=== PATIENT | female | born 1985 | race Caucasian/White ===

== ENCOUNTER 2019-02-02 19:28 | Emergency (ER) | payer MEDICARE, SELFPAY ==
[2019-02-02 19:30] VITALS: BP 160/113; PULSE 128; RESP 18; TEMP 36.8; O2SAT 99; BMI 27.4
--- NOTE | 2019-02-02 20:02 | ED.RN ---
pt arrives to ed aggitated and noncooperative. pt refused to get into a gown and asked for a female dr and rn. pt was informed that I would try to facilitate a female rn, but we only had male dr on staff. pt was on the phone with her control inspector. explanation for involuntary hold was attempted, but pt was unable remain calm and allow me to explain. she continued to want to argue. Female rn was located and agreed to take over care. pt behavior and previous interactions were relayed to er discharge door operator and dr. casey, rn is now caring for patient as primary rn. ilda patel rn [id number]
--- NOTE | 2019-02-02 20:18 | ED.RN ---
SHARON FROM CRISIS IN THE DEPARTMENT. NOTIFIED HER THAT THIS PT WILL NEED TO BE EVALUATED.
--- NOTE | 2019-02-02 20:19 | ED.RN ---
SHARON FROM CRISIS AT BEDSIDE.
[2019-02-02 20:29] VITALS: RESP 16
--- NOTE | 2019-02-02 20:32 | ED.RN ---
SITTER IN THE ROOM PER DR RUSS REQUEST DUE TO FLIGHT RISK
[2019-02-02] MEDS: LORazepam 1 MG Tablet PO (20:46)
[2019-02-02] MEDS: DiphenhydrAMINE 25 MG Capsule PO (20:46)
[2019-02-02 20:48] LABS: Absolute Lymphocyte Count 1.59 X10^3/ul (0.83-4.51); Absolute Neutrophil Count 7.8 X10^3/uL (2.0-7.7); Basophil# 0.01 X10^3/uL; Basophil% 0.1 % (0-1); Eosinophil# 0.06 X10^3/uL; Eosinophils% 0.6 % (0-5); Hematocrit 41.3 % (37-47); Hemoglobin 14.2 g/dl (12.0-15.0); Lymphocyte # 1.59 X10^3/ul (4.0); Lymphocyte % 15.5 % (19-41); Mean Corp Hgb Conc 34.4 g/gl (32-36); Mean Corpuscular Hgb 30.5 pg (27.0-32.0); Mean Corpuscular Volume 88.6 fL (81-99); Mean Platelet Vol. 10.2 fl (6.2-12.0); Monocyte# 0.75 X10^3/uL; Monocyte% 7.3 % (0-10); Neutrophil % 76.3 % (47-70); Platelet Count 233 K/mm3 (150-450); RBC Distribution Width CV 12.4 % (11.6-14.6); RBC Distribution Width SD 39.5 fl (35.1-43.9); Red Blood Count 4.66 M/mm3 (4.2-5.4); White Blood Count 10.2 K/mm3 (4.4-11.0)
[2019-02-02 20:50] LABS: POSITIVE COUNT NO; POSITIVE DIFFERENTIAL NO; POSITIVE MORPHOLOGY NO
--- NOTE | 2019-02-02 20:55 | CM.ED ---
SOCIAL WORK NOTE CARRY ALL DRIVER REQUESTING TO SPEAK WITH THIS WORKER. PER CARRY ALL DRIVER, SHARON, PATIENT NOT APPROPRIATE FOR INPATIENT PSYCH HOSPITALIZATION. PATIENT DENIES ANY SUICIDAL OR HOMICIDAL IDEATIONS. PER SHARON, PATIENT ABLE TO D/C HOME WITH HER FIANCE. DISCUSSED WITH DR. RUSS. IVANA SHARMA, TENNIS DIRECTOR, TOP STITCHER.
[2019-02-02 21:03] LABS: AST(SGOT) 10 U/L (15-37); Alanine Aminotransfer ALT/SGPT 29 U/L (13-56); Albumin, Serum 3.9 g/dL (3.2-5.0); Alkaline Phosphatase 108 U/L (45-117); Anion Gap 7 (5-15); BUN 9 mg/dL (7-18); BUN/Creat Ratio 12.5 RATIO (10-20); Calcium,Total 8.6 mg/dL (8.5-10.1); Chloride 104 mmol/L (98-107); Creatinine, Serum 0.72 mg/dL (0.55-1.02); EST Glomerular Filtration Rate 98 mL/min (>60); Est Glom Filt Rate - Afr Amer 119 mL/min (>60); Estimated Creatinine Clearance 86.25 ml/min; Globulin 4.1 g/dL (2.2-4.2); Glucose 110 mg/dL (74-106); Potassium 3.8 mmol/L (3.5-5.1); Sodium Level 138 mmol/L (136-145)
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
--- NOTE | 2019-02-02 22:39 | ED.DEP ---
ED Disposition - Plan for ED Patient: Instructions: ED Contract, No Harm Additional Instructions: followup with your psychiatrist
[2019-02-02 22:42] LABS: Amphetamine Urine VISTA NEGATIVE (<1000 ng/mL); Barbiturate Urine VISTA NEGATIVE (< 200 ng/mL); Benzodiazepine Urine VISTA NEGATIVE (< 200 ng/mL); Cocaine Urine VISTA NEGATIVE (< 300 ng/mL); Ecstacy Urine VISTA NEGATIVE (< 500 ng/mL); Methadone Urine VISTA NEGATIVE (< 300 ng/mL); PCP Urine VISTA NEGATIVE (< 25 ng/mL); THC Urine VISTA NEGATIVE (< 50 ng/mL); Vista UDS pH Range 5
[2019-02-02 22:44] VITALS: BP 119/92; PULSE 87; RESP 16; O2SAT 99
[2019-02-02 22:47] VITALS: BP 119/92; PULSE 92; RESP 16; O2SAT 100
[2019-02-02 22:50] LABS: Internal QC Validated? YES +Cl - CLEAR BKGD
[2019-02-02 22:51] LABS: Pregnancy, Serum, hCG Quali. NEGATIVE Negative
--- NOTE | 2019-02-02 22:52 | ED.RN ---
pt refused to sign no harm contract stating that stupid. i don't believe in no harm contracts. dr garcia made aware. significant other was instructed to call 911 if patient became a threat to herself or others. he stated understanding. ilda patel rn [id number]
== END 2019-02-02 22:49 | disposition home or self-care (01) ==
PROVIDERS: Emergency Provider Emergency Medicine
DX: F31.9 Bipolar disorder, unspecified (principal); F41.9 Anxiety disorder, unspecified; F32.9 Major depressive disorder, single episode, unspecified; Z79.899 Other long term (current) drug therapy
CPT/HCPCS: 36415; 80053; 80307; 80320; 84703; 85025; 99283; G0480

== ENCOUNTER 2021-12-02 14:48 | Outpatient (CLI) | payer MEDICARE, SELFPAY ==
[2021-12-02 16:02] LABS: Absolute Lymphocyte Count 1.79 X10^3/uL (0.83-4.51); Absolute Neutrophil Count 8.5 X10^3/uL (2.0-7.7); Basophil# 0.03 X10^3/uL; Basophil% 0.3 % (0-1); Eosinophil# 0.08 X10^3/uL; Eosinophils% 0.7 % (0-5); Hematocrit 40.3 % (37-47); Hemoglobin 13.4 g/dL (12.0-15.0); Lymphocyte # 1.79 X10^3/ul (0.83-4.51); Mean Corp Hgb Conc 33.3 g/dL (32-36); Mean Corpuscular Hgb 29.6 pg (27.0-32.0); Mean Platelet Vol. 10.1 fl (6.2-12.0); Monocyte# 0.72 X10^3/uL; Monocyte% 6.4 % (0-10); NRBC Flagged by Analyzer 0 % (0-5); Neutrophil # 8.51 X10^3/uL (2.7-7.7); Neutrophil % 76.1 % (47-70); Platelet Count 333 K/mm3 (150-450); RBC Distribution Width CV 13.3 % (11.6-14.6); RBC Distribution Width SD 43.1 fl (35.1-43.9); Red Blood Count 4.53 M/mm3 (4.2-5.4); White Blood Count 11.2 K/mm3 (4.4-11.0)
[2021-12-02 16:48] LABS: ALB/GLOB Ratio 0.8 RATIO (0.9-2.4); AST(SGOT) 17 U/L (15-37); Alanine Aminotransfer ALT/SGPT 39 U/L (13-56); Albumin, Serum 3.6 g/dL (3.2-5.0); Alkaline Phosphatase 103 U/L (45-117); Anion Gap 6 (5-15); BUN 10 mg/dL (7-18); BUN/Creat Ratio 13.8 RATIO (10-20); Calcium,Total 8.9 mg/dL (8.5-10.1); Chloride 107 mmol/L (98-107); Creatinine, Serum 0.72 mg/dL (0.55-1.02); EST Glomerular Filtration Rate 96 mL/min (>60); Est Glom Filt Rate - Afr Amer 116 mL/min (>60); Globulin 4.8 g/dL (2.2-4.2); Glucose 96 mg/dL (74-106); Potassium 3.6 mmol/L (3.5-5.1); Protein, Total 8.4 g/dL (6.4-8.2); Sodium Level 137 mmol/L (136-145); T4 Free Direct 1.07 ng/dL (0.76-1.46); Thyroid Stim Hormone (TSH) 1.26 uIU/mL (0.358-3.74)
[2021-12-04 17:07] LABS: Endomysial Antibody IgA Negative (Negative); Immunoglobulin A 381 mg/dL (87-352)
[2021-12-04 17:56] LABS: Deamidated Gliadin IgA 7 units (0-19); Deamidated Gliadin IgG 4 units (0-19); Thyroid Peroxidase AB 12 IU/mL (0-34); t-Transglutaminase IgA <2 U/mL (0-3)
== END 2021-12-02 23:59 | disposition home or self-care (01) ==
LOC: LAB 14:52
PROVIDERS: PCP Nurse Practitioner Adult Health; Referring Provider Nurse Practitioner Adult Health; Visit Provider Nurse Practitioner Adult Health
DX: R19.7 Diarrhea, unspecified (principal); R63.5 Abnormal weight gain
CPT/HCPCS: 36415; 80053; 82784; 83516; 84439; 84443; 85025; 86255; 86376

== ENCOUNTER 2022-01-04 18:06 | Emergency (ER) | payer MEDICARE, SELFPAY ==
[2022-01-04 18:08] VITALS: BP 148/94; PULSE 91; RESP 17; TEMP 35.8; O2SAT 100; BMI 32.1
--- NOTE | 2022-01-04 18:30 | EX.ED.VIS.PS ---
HPI HPI - Psych History of Present Illness Chief Complaint: Mental Health Informant: patient Narrative Narrative: Patient presents by private vehicle reporting increasing stress with insomnia for the past couple weeks. History of bipolar disorder. She is followed by telehealth psychiatry down in [place]. She said diagnoses bipolar since 2014. Has been on multiple medications, most recently was on Zyprexa 7.5 mg. However reports was gaining over 40 pounds therefore stopped this 2 weeks ago. She also stopped her to hydroxyzine due to not working for her anxiety. She denies any suicidal homicidal ideations. She has been trying to get back in with her psychiatrist to try to restart a different medication. She states had appointment 4 PM today however was not given the length the log on and had to try to get appointment for this coming Thursday. She has tried melatonin in the past. She states 4 years ago was on trazodone 50 mg which helped her sleep. She denies any alcohol use denies any recreational drug use. States stress with her exsignificant other which was a split after 8 years, they sold her house a month ago she just recently moved in with her mother with her children out from [place]. She states she was incarcerated for 16 months, she was out over a year ago. Prior similar symptoms: Yes PFSH PFSH Home Medications escitalopram oxalate 20 mg PO DAILY 02/02/19 [History Last Taken Unknown] lorazepam 1 mg PO PRN PRN 02/02/19 [History Last Taken Unknown] paliperidone palmitate [Invega Sustenna] 117 unit IM QMONTH 02/02/19 [History Last Taken Unknown] trazodone 50 mg PO QHS PRN #7 tab 01/04/22 [Rx Last Taken Unknown] Allergy/AdvReac Type Severity Reaction Status Date / Time citalopram hydrobromide Allergy Hives Verified 01/04/22 18:08 [From Celexa] hydrocodone bitartrate Allergy Swelling Verified 01/04/22 18:08 [From Vicodin] lamotrigine [From Lamictal] Allergy Itching Verified 01/04/22 18:08 nitrofurantoin Allergy Hives Verified 01/04/22 18:08 [From Macrobid] nitrofurantoin Allergy Hives Verified 01/04/22 18:08 macrocrystalline [From Macrobid] Penicillins Allergy Swelling Verified 01/04/22 18:08 ziprasidone [From Geodon] AdvReac Other Verified 01/04/22 18:08 Social History Smoking Status: Never smoker ROS ROS ED Constitutional Constitutional ED: Denies chills, fever(s) or sweats Eyes Eyes: Denies change in vision ENT ENT ED: Denies dysphagia or sore throat Cardiovascular Cardiovascular: Denies chest pain, leg edema, palpitations or racing heartbeat Respiratory/Chest Respiratory/Chest: Denies cough, dyspnea or dyspnea on exertion Gastrointestinal Gastrointestinal: Denies abdominal pain, diarrhea, nausea or vomiting Genitourinary Genitourinary ED: Denies dysuria, hematuria or urinary frequency Musculoskeletal Musculoskeletal: Denies back pain, extremity pain or neck pain Integumentary Denies rash or wounds Neurologic Neurologic: Denies headache(s), paresthesias or weakness Psychiatric Psychiatric: Reports anxiety and other Details: Insomnia ; Denies depression, suicidal ideation or suicidal thoughts EXAM Physical Exam Const Vital Signs: 01/04/22 18:08 Temperature 96.5 F L Temperature Source Temporal Pulse Rate 91 Respiratory Rate 17 Blood Pressure 148/94 H Blood Pressure Mean 112 Pulse Ox 100 Oxygen Delivery Method Room Air Positive well nourished and well developed General Appearance ED: well developed and NAD HEENT Reports moist mucous membranes normocephalic and atraumatic Eyes PERRL, EOMs intact bilaterally and conjunctivae normal General Eye ED: Yes normal appearance of both eyes Neck no lymphadenopathy and supple General: Negative for tenderness Chest Wall Chest: Negative for tenderness Resp normal respiratory effort and normal air movement Effort and Inspection: symmetric chest movement; Negative for respiratory distress Cardio regular rate, regular rhythm and no murmurs Peripheral Pulses: pulses 2+ throughout GI normal to inspection, nondistended, normoactive bowel sounds and non-tender Palpation: Negative for guarding or rebound tenderness present Back/Spine no CVA tenderness and no thoracic nor lumbar tenderness Extremity normal to inspection General Extremety ED: Negative for edema or tenderness General Extremity: Negative for edema Neuro oriented x3 and no sensory deficits noted Sensorium / Orientation: awake and alert Psych Psych Narrative: Denies any suicidal homicidal ideations. Appearance: grossly normal, appropriate and well kempt Attitude: calm Activity / Motor Behavior: appropriate eye contact Speech: normal speech Skin no rashes or lesions noted and no wounds MDM MDM MDM Narrative Medical decision making narrative: Patient vital stable cooperative discussing her increasing stress. She did not want to restart her Zyprexa due to weight gain. Primary complaint today is insomnia due to stress. She is tolerated trazodone in the past. She denies suicidal homicidal ideations. Discussed with patient we will write a 7-day prescription for trazodone at night to use to help her sleep she will discuss with her psychiatrist on Thursday to restart a different medication due to concerning side effects of weight gain. Patient understands and agrees with plan. All questions were answered. Discharge Plan Triage Chief Complaint: Mental Health ED Provider: Jesu Molina Dx/Rx/DC Orders Clinical Impression: Insomnia, History of bipolar disorder Instructions: ED Insomnia Prescriptions: New trazodone 50 mg tablet 50 mg PO QHS PRN (Reason: insomnia) Qty: 7 RF: 0 No Action lorazepam 1 tablet 1 mg PO PRN PRN (Reason: Anxiety) RF: 0 escitalopram oxalate 20 MG tablet 20 mg PO DAILY RF: 0 paliperidone palmitate [Invega Sustenna] 117 syringe 117 unit IM QMONTH RF: 0 Primary Care Provider: Liliana Lamas Referrals: Liliana Lamas [Primary Care Provider] - Activity Restrictions/Additional Instructions: Keep your appointment on Thursday to discuss your medications with your psychiatrist. Trazodone sent to your pharmacy to take at night to help you sleep. Disposition Disposition: Home, Self Care
== END 2022-01-04 18:36 | disposition home or self-care (01) ==
PROVIDERS: Emergency Provider Emergency Medicine; Visit Provider Emergency Medicine
DX: G47.00 Insomnia, unspecified (principal); F31.9 Bipolar disorder, unspecified; F41.9 Anxiety disorder, unspecified; Z79.899 Other long term (current) drug therapy
CPT/HCPCS: 99281

== ENCOUNTER 2022-03-05 18:44 | Emergency (ER) | payer MEDICARE, MEDICAID, SELFPAY ==
[2022-03-05 18:48] VITALS: BP 156/107; PULSE 118; RESP 17; TEMP 36.8; O2SAT 98; BMI 30.3
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
[2022-03-05 20:13] VITALS: PULSE 102; RESP 15; O2SAT 98
== END 2022-03-05 20:14 | disposition home or self-care (01) ==
PROVIDERS: Emergency Provider Emergency Medicine; Visit Provider Emergency Medicine
DX: F43.0 Acute stress reaction (principal); F31.9 Bipolar disorder, unspecified; Z63.79 Other stressful life events affecting family and household; Z79.899 Other long term (current) drug therapy
CPT/HCPCS: 99282

== ENCOUNTER 2022-04-12 19:34 | Emergency (ER) | payer MEDICARE, MEDICAID, SELFPAY ==
[2022-04-12 19:35] VITALS: BP 135/108; PULSE 127; RESP 16; TEMP 36.6; O2SAT 100; BMI 29.2
--- NOTE | 2022-04-12 19:45 | CM.ED ---
Addendum entered by Lenore Mendez 04/12/22 20:00: MD Adrian updated this telegraphic typewriter installer regarding patient. agreed to crisis referral. Lenore SCHWARTZ Addendum entered by Lenore Mendez 04/12/22 19:48: DONALD received call from Prema with Crisis. DONALD updated Prema that Crisis may be called to assess pt. Original Note: Social Work Note DONALD updated that pt presents to [facility] with Agitation and Mental Health. DONALD placed a call to [facility] asked to speak to Crisis. DONALD updated that Bárbara is wharf worker and message will be relayed. Barbi Casillas FUR CLEANER, THICKENER OPERATOR
--- NOTE | 2022-04-12 20:01 | EX.ED.VIS.PS ---
HPI HPI - Psych History of Present Illness Chief Complaint: Mental Health Informant: patient Onset/Context/Timing Onset: Yesterday Context: Gradual Onset Timing: Continuous Worsened by: Situational factors Relieved by: Nothing Associated Symptoms Associated Symptoms - Psych: Positive for Agitated; Negative for Suicidal Thoughts, Paranoia, Visual Hallucinations or Auditory Hallucinations Narrative Narrative: Patient presents with increased agitation that began yesterday. Patient states that she is moving 20 minutes away from where she lives now. Patient states that she will only be able to see her children on the weekends because of this. Patient states this made her agitated. Patient states she was agitated throughout the day today. Patient denies any suicidal or homicidal ideations. Patient denies any visual or auditory hallucinations. Patient also states her medication was changed recently. Patient states she takes Geodon twice daily. Patient states her evening dose was increased recently. [facility] Medical History Bipolar 1 disorder Home Medications albuterol sulfate 90 mcg/actuation aerosol inhaler 2 puff inhalation Q4H PRN PRN sob 03/05/22 [History Last Taken Unknown] loratadine 10 mg tablet (Claritin) 10 mg PO DAILY 03/05/22 [History Last Taken Unknown] lorazepam 0.5 mg tablet (Ativan) 0.5 mg PO TID PRN anxiety #20 tabs 03/05/22 [Rx Last Taken Unknown] trazodone 50 mg tablet 100 mg PO QHS PRN insomnia 03/05/22 [History Last Taken Unknown] ziprasidone HCl 20 mg capsule (Geodon) 20 mg PO BID 03/05/22 [History Last Taken Unknown] Allergy/AdvReac Type Severity Reaction Status Date / Time citalopram hydrobromide Allergy Hives Verified 04/12/22 19:37 [From Celexa] hydrocodone bitartrate Allergy Swelling Verified 04/12/22 19:37 [From Vicodin] lamotrigine [From Lamictal] Allergy Itching Verified 04/12/22 19:37 nitrofurantoin Allergy Hives Verified 04/12/22 19:37 [From Macrobid] nitrofurantoin Allergy Hives Verified 04/12/22 19:37 macrocrystalline [From Macrobid] Penicillins Allergy Swelling Verified 04/12/22 19:37 Surgical History History of tubal ligation Social History household members: family and children Smoking Status: Never smoker ROS ROS ED Constitutional Constitutional ED: Denies chills or fever(s) Eyes Eyes: Denies blurry vision or change in vision ENT ENT ED: Denies rhinorrhea or sore throat Cardiovascular Cardiovascular: Denies chest pain or palpitations Respiratory/Chest Respiratory/Chest: Reports cough; Denies dyspnea Gastrointestinal Gastrointestinal: Reports nausea; Denies vomiting Genitourinary Genitourinary ED: Denies dysuria or hematuria Musculoskeletal Musculoskeletal: Denies back pain or neck pain Integumentary Denies abscess or rash Neurologic Neurologic: Denies headache(s) or weakness Psychiatric Psychiatric: Denies suicidal ideation or suicidal thoughts Allergic/Immunologic Allergic/Immunologic ED: Denies mouth swelling or urticaria EXAM Physical Exam Const Vital Signs: 04/12/22 19:35 04/12/22 21:14 Temperature 98 F Temperature Source Temporal Pulse Rate 127 H 88 Respiratory Rate 16 18 Blood Pressure 135/108 H Blood Pressure Mean 117 Pulse Ox 100 100 Oxygen Delivery Method Room Air Room Air Positive well nourished and well developed General Appearance ED: well developed and irritable HEENT normocephalic and atraumatic Neck supple and no JVD Resp normal respiratory effort and clear to auscultation bilaterally Cardio no murmurs Rate: regular rate Rhythm: regular rhythm GI non-tender and non-distended Auscultation: normoactive bowel sounds Palpation: soft Extremity normal to inspection General Extremety ED: Negative for edema or tenderness General Extremity: Negative for edema Neuro oriented x3, CN's II-XII intact bilaterally and no sensory deficits noted Sensorium / Orientation: alert Motor Exam: strength 5/5 throughout Psych mental status grossly normal Activity / Motor Behavior: appropriate eye contact Speech: normal speech Mood & Affect: irritable Thought Content: No suicidality and No homicidality Skin Rashes: no rashes MDM MDM MDM Narrative Medical decision making narrative: Patient does not want any lab work drawn. Case was discussed with crisis. They will be in to evaluate the patient. Patient does not want to talk to crisis. Patient was given a dose of Ativan here. Patient feels better. Patient is not suicidal or homicidal. Patient has an appointment with her psychiatrist tomorrow. Patient was advised to follow-up with that appointment. Patient is safe to be discharged. Patient understands and is agreeable with the plan. All questions were answered. Discharge Plan Triage Chief Complaint: Mental Health ED Provider: Yobani Alcocer Dx/Rx/DC Orders Clinical Impression: Agitation, Bipolar disorder Instructions: ED Bipolar Disorder Prescriptions: No Action ziprasidone HCl [Geodon] 20 mg capsule 20 mg PO BID Label Comments: take 1 capsule by mouth twice a day trazodone 50 mg tablet 100 mg PO QHS PRN (Reason: insomnia) albuterol sulfate 90 mcg/actuation HFA aerosol inhaler 2 puff INHALATION Q4H PRN PRN (Reason: sob) loratadine [Claritin] 10 mg Tablet 10 mg PO DAILY lorazepam [Ativan] 0.5 mg tablet 0.5 mg PO TID PRN (Reason: anxiety) Qty: 20 0RF Primary Care Provider: Liliana Lamas Referrals: Liliana Lamas [Primary Care Provider] - 3-5 Days Disposition Disposition: Home, Self Care
--- NOTE | 2022-04-12 20:07 | NURSING ---
CALLED [facility] AT 2006. WAITING CALL BACK.
[2022-04-12] MEDS: LORazepam 1 MG Tablet PO (21:09)
[2022-04-12 21:14] VITALS: PULSE 88; RESP 18; O2SAT 100
--- NOTE | 2022-04-12 21:14 | NURSING ---
pt refused to talk with bag worker. doctor update.
[2022-04-12 22:02] VITALS: PULSE 72; RESP 18; O2SAT 100
== END 2022-04-12 22:03 | disposition home or self-care (01) ==
PROVIDERS: Emergency Provider Emergency Medicine; Visit Provider Emergency Medicine
DX: F31.9 Bipolar disorder, unspecified (principal); Z79.899 Other long term (current) drug therapy
CPT/HCPCS: 99282

== ENCOUNTER 2022-06-25 19:58 | Emergency (ER) | payer MEDICARE, MEDICAID, SELFPAY ==
[2022-06-25 19:58] VITALS: BP 138/88; PULSE 84; RESP 18; TEMP 36.3; O2SAT 100; BMI 29.2
--- NOTE | 2022-06-25 22:37 | EX.ED.DYSGE1 ---
HPI History of Present Illness Chief Complaint: Mental Health Narrative Narrative: Patient is a 36-year-old female with past medical history of bipolar disorder and depression. She states she is on Geodon twice a day for her bipolar and also has been started on Wellbutrin for the past week and a half. She states that she is not homicidal or suicidal but feels like her depression is increasing and not responding to her medication. She states that she has been to crisis center in [facility] in the past for voluntary admission and feels like she may need to go that route once again and therefore comes to the hospital for evaluation. [facility] Medical History Bipolar 1 disorder Depression Home Medications albuterol sulfate 90 mcg/actuation aerosol inhaler 2 puff inhalation Q4H PRN PRN sob 03/05/22 [History Last Taken Unknown] loratadine 10 mg tablet (Claritin) 10 mg PO DAILY 03/05/22 [History Last Taken Unknown] lorazepam 0.5 mg tablet (Ativan) 0.5 mg PO TID PRN anxiety #20 tabs 03/05/22 [Rx Last Taken Unknown] trazodone 50 mg tablet 100 mg PO QHS PRN insomnia 03/05/22 [History Last Taken Unknown] ziprasidone HCl 20 mg capsule (Geodon) 20 mg PO BID 03/05/22 [History Last Taken Unknown] Allergy/AdvReac Type Severity Reaction Status Date / Time citalopram hydrobromide Allergy Hives Verified 06/25/22 20:01 [From Celexa] hydrocodone bitartrate Allergy Swelling Verified 06/25/22 20:01 [From Vicodin] lamotrigine [From Lamictal] Allergy Itching Verified 06/25/22 20:01 nitrofurantoin Allergy Hives Verified 06/25/22 20:01 [From Macrobid] nitrofurantoin Allergy Hives Verified 06/25/22 20:01 macrocrystalline [From Macrobid] Penicillins Allergy Swelling Verified 06/25/22 20:01 Surgical History History of tubal ligation Social History household members: family and children Smoking Status: Never smoker ROS ROS ED Constitutional Constitutional ED: Denies chills or fever(s) ENT ENT ED: Denies sore throat Cardiovascular Cardiovascular: Denies chest pain Respiratory/Chest Respiratory/Chest: Denies cough or dyspnea Gastrointestinal Gastrointestinal: Denies abdominal pain, diarrhea, nausea or vomiting Genitourinary Genitourinary ED: Denies dysuria Musculoskeletal Musculoskeletal: Denies myalgias Integumentary Denies rash Neurologic Neurologic: Denies headache(s) Psychiatric Psychiatric: Reports depression; Denies suicidal ideation or suicidal thoughts Hematologic/Lymphatic Hematologic/Lymphatic: Denies easy bleeding or easy bruising EXAM Physical Exam Const Vital Signs: 06/25/22 19:58 Temperature 97.4 F L Temperature Source Temporal Pulse Rate 84 Respiratory Rate 18 Blood Pressure 138/88 H Blood Pressure Mean 104 Pulse Ox 100 Oxygen Delivery Method Room Air Positive well nourished and well developed General Appearance ED: well developed Eyes PERRL and EOMs intact bilaterally Neck supple Resp normal respiratory effort and clear to auscultation bilaterally Cardio regular rate and regular rhythm Extremity normal to inspection Neuro oriented x3, CN's II-XII intact bilaterally and no sensory deficits noted Sensorium / Orientation: alert Motor Exam: strength 5/5 throughout Psych Psych Narrative: Patient has a depressed/flat affect without homicidal or suicidal ideation Skin no rashes or lesions noted MDM MDM MDM Narrative Medical decision making narrative: Patient presented to the ER with complaint of depression was not improving with time and her normal medications. Despite this she denied any homicidal or suicidal ideations. I instructed the patient that there is no quick fix for depression and she needs to continue her meds as directed by her counselor/psychiatrist. However as she is feeling her depression is worsening I did offer evaluation by our crisis center to see if she would require placement at a facility for further treatment. The patient states that she will not go to any other facility other than the crisis center of [facility]. She states however it is 45 minutes away and she does not wish to drive up there to see if beds are available and at this time she is refusing any type of testing as she states it is not needed for placement at their center. I did contact the crisis center of [facility] but they told me they cannot give any information regarding bed status. They recommend that if patient feels she needs admitted to their facility that she drive up there and go through their intake process and see if a bed is available. The patient is not homicidal or suicidal she is not meet criteria for a pink slip/involuntary hold. Therefore there is no need for further work-up at this time as she does not want further evaluated by our crisis center/intervention and is otherwise safe for discharge. Discharge Plan Triage Chief Complaint: Mental Health ED Provider: Harry Valiente Dx/Rx/DC Orders Clinical Impression: Bipolar disorder with depression Instructions: ED Depression, ED Bipolar Disorder Prescriptions: No Action ziprasidone HCl [Geodon] 20 mg capsule 20 mg PO BID Label Comments: take 1 capsule by mouth twice a day trazodone 50 mg tablet 100 mg PO QHS PRN (Reason: insomnia) albuterol sulfate 90 mcg/actuation HFA aerosol inhaler 2 puff INHALATION Q4H PRN PRN (Reason: sob) loratadine [Claritin] 10 mg Tablet 10 mg PO DAILY lorazepam [Ativan] 0.5 mg tablet 0.5 mg PO TID PRN (Reason: anxiety) Qty: 20 0RF Primary Care Provider: Liliana Lamas Referrals: Liliana Lamas [Primary Care Provider] - Disposition Disposition: Home, Self Care Discharge Date/Time: 06/25/22 22:42
--- NOTE | 2022-06-25 22:42 | ED.RN ---
pt. eloped before d/c
== END 2022-06-25 22:42 | disposition home or self-care (01) ==
LOC: ED 22:39
PROVIDERS: Emergency Provider Emergency Medicine; Visit Provider Emergency Medicine
DX: F31.9 Bipolar disorder, unspecified (principal); Z79.899 Other long term (current) drug therapy
CPT/HCPCS: 99282

== ENCOUNTER 2022-07-27 14:37 | Emergency (ER) | payer MEDICARE, MEDICAID, SELFPAY ==
[2022-07-27 14:38] VITALS: BP 155/106; PULSE 98; RESP 16; TEMP 36.4; O2SAT 100; BMI 29.2
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
== END 2022-07-27 15:37 | disposition home or self-care (01) ==
PROVIDERS: Emergency Provider Emergency Medicine; Visit Provider Emergency Medicine
DX: F31.9 Bipolar disorder, unspecified (principal); F43.9 Reaction to severe stress, unspecified; F41.9 Anxiety disorder, unspecified; Z63.8 Other specified problems related to primary support group
CPT/HCPCS: 99282

== ENCOUNTER 2022-09-10 15:07 | Outpatient (CLI) | payer MEDICARE, MEDICAID, SELFPAY ==
--- NOTE | 2022-09-10 15:25 | RAD_ITS ---
EXAM: XR CHEST, 2 VIEWS CLINICAL INDICATION: CHRONIC COUGH TECHNIQUE: Frontal and lateral views of the chest. This report was created using [employer] report generation technology. COMPARISON: None. FINDINGS: LUNGS AND PLEURAL SPACES: Unremarkable. No consolidation or edema. No pneumothorax. No effusion. HEART: Unremarkable. Cardiac silhouette not enlarged. MEDIASTINUM: Central airways and mediastinal contour are unremarkable. BONES/JOINTS: Unremarkable. SOFT TISSUES: Unremarkable. RAD/Chest PA and Lateral IMPRESSION: No radiographic evidence of acute cardiopulmonary disease. Electronically Signed: Kristian Stern MD at 17:32 EST ,
== END 2022-09-10 23:59 | disposition home or self-care (01) ==
PROVIDERS: PCP Nurse Practitioner Family; Referring Provider Nurse Practitioner Family; Visit Provider Nurse Practitioner Family
DX: R05.3 Chronic cough (principal)
CPT/HCPCS: 71046

== ENCOUNTER 2022-09-12 18:40 | Emergency (ER) | payer MEDICARE, MEDICAID, SELFPAY ==
[2022-09-12 18:42] VITALS: BP 127/88; PULSE 109; RESP 16; TEMP 36.8; O2SAT 100; BMI 29.1
[2022-09-12 19:33] LABS: Absolute Lymphocyte Count 1.47 X10^3/uL (0.83-4.51); Absolute Neutrophil Count 7.8 X10^3/uL (2.0-7.7); Basophil# 0.02 X10^3/uL; Basophil% 0.2 % (0-1); Eosinophil# 0.22 X10^3/uL; Eosinophils% 2.2 % (0-5); Hematocrit 40.2 % (37-47); Hemoglobin 13.2 g/dL (12.0-15.0); Lymphocyte # 1.47 X10^3/ul (0.83-4.51); Lymphocyte % 14.4 % (19-41); Mean Corp Hgb Conc 32.8 g/dL (32-36); Mean Corpuscular Hgb 28.7 pg (27.0-32.0); Mean Corpuscular Volume 87.4 fL (81-99); Mean Platelet Vol. 9.8 fl (6.2-12.0); Monocyte# 0.74 X10^3/uL; Monocyte% 7.2 % (0-10); NRBC Flagged by Analyzer 0 % (0-5); Neutrophil # 7.75 X10^3/uL (2.7-7.7); Neutrophil % 75.7 % (47-70); Platelet Count 317 K/mm3 (150-450); RBC Distribution Width CV 13.9 % (11.6-14.6); White Blood Count 10.2 K/mm3 (4.4-11.0)
--- NOTE | 2022-09-12 19:42 | EDS_ITS ---
HPI History of Present Illness Chief Complaint: Nausea/Vomiting Detail of Chief Complaint: Nausea and vomiting x1 week Informant: patient Onset/Context/Timing Onset: Weeks Context: Sudden Onset Timing: Intermittent Quality: Nausea with vomiting Location: GI Current Severity: Gone Maximum Severity: Moderate Worsened by: Eating or drinking anything Relieved by: Nothing Associated Symptoms Associated Symptoms: Nothing Narrative Narrative: Patient is a 36-year-old woman status post cholecystectomy and bilateral tubal ligation. Tubal ligation was 16 years ago. She has no signs symptoms of . She denies fever, chills night sweats. She denies myalgias arthralgias. Denies headache, visual disturbance, double vision or blurred vision. She denies ringing or ears decreased hearing. Denies trouble speech or swallowing. She denies rhinorrhea, congestion, postnasal drainage or sore throat. She denies cough or shortness of breath. She denies chest discomfort. She denies diarrhea. She denies hematemesis. She denies dysuria, frequency, urgency or hematuria. Last normal menstrual period 2 weeks ago. She denies rash. Denies myalgias arthralgias. She denies marijuana use. She states she does not smoke drink or use drugs. Prior similar symptoms: No Recent Illness/Hospitalization: No PFSH [facility] Medical History Asthma Bipolar 1 disorder Depression PTSD (post-traumatic stress disorder) Home Medications albuterol sulfate 90 mcg/actuation aerosol inhaler 2 puff inhalation Q4H PRN PRN sob 03/05/22 [History Last Taken Unknown] trazodone 50 mg tablet 100 mg PO QHS PRN insomnia 03/05/22 [History Last Taken Unknown] benzonatate 100 mg capsule 100 mg PO QHS PRN Cough 08/12/22 [History Last Taken Unknown] bupropion HCl 150 mg 24 hr tablet, extended release 150 mg PO DAILY 08/12/22 [History Last Taken Unknown] lorazepam 0.5 mg tablet 0.5 mg PO DAILY PRN anxiety #15 tabs 08/12/22 [Rx Last Taken Unknown] ziprasidone HCl 80 mg capsule 80 mg PO QHS 08/12/22 [History Last Taken Unknown] ziprasidone HCl 20 mg capsule (Geodon) 20 mg PO QAM #30 caps 09/03/22 [Rx Last Taken Unknown] ondansetron 4 mg disintegrating tablet 4 mg PO Q8H PRN PRN Nausea #10 tabs 09/12/22 [Rx Last Taken Unknown] Allergy/AdvReac Type Severity Reaction Status Date / Time citalopram hydrobromide Allergy Hives Verified 09/12/22 18:42 [From Celexa] hydrocodone bitartrate Allergy Swelling Verified 09/12/22 18:42 [From Vicodin] lamotrigine [From Lamictal] Allergy Itching Verified 09/12/22 18:42 nitrofurantoin Allergy Hives Verified 09/12/22 18:42 [From Macrobid] nitrofurantoin Allergy Hives Verified 09/12/22 18:42 macrocrystalline [From Macrobid] Penicillins Allergy Anaphylaxis Verified 09/12/22 18:42 Family History Father Bipolar 1 disorder Alcoholism Brother Bipolar 1 disorder Daughter Bipolar 1 disorder Surgical History History of cholecystectomy History of tubal ligation Social History household members: family and children Smoking Status: Never smoker alcohol intake: never substance use type: does not use ROS ROS ED Constitutional Constitutional ED: Denies chills, fever(s), subjective, sweats or weight loss Eyes Eyes: Denies blurry vision, change in vision or diplopia ENT ENT ED: Denies ear pain, rhinorrhea or sore throat Cardiovascular Cardiovascular: Denies chest pain, palpitations or racing heartbeat Respiratory/Chest Respiratory/Chest: Denies cough, dyspnea or dyspnea on exertion Gastrointestinal Gastrointestinal: Reports nausea and vomiting; Denies abdominal pain, constipation, diarrhea or melena Genitourinary Genitourinary ED: Denies dysuria, hematuria or urinary frequency Musculoskeletal Musculoskeletal: Denies arthralgias, back pain, myalgias or neck pain Integumentary Denies Abrasions or rash Neurologic Neurologic: Denies headache(s), paresthesias or weakness Psychiatric Psychiatric: Reports depression Endocrine Endocrinology: Denies cold intolerance, heat intolerance or polydipsia Hematologic/Lymphatic Hematologic/Lymphatic: Reports systems reviewed and no addt'l complaints, except as documented EXAM Physical Exam Const Vital Signs: 09/12/22 18:42 Temperature 98.3 F Temperature Source Temporal Pulse Rate 109 H Respiratory Rate 16 Blood Pressure 127/88 H Blood Pressure Mean 101 Pulse Ox 100 Oxygen Delivery Method Room Air Positive well nourished and well developed General Appearance ED: well developed and NAD; Negative for cyanotic, diaphoretic or pallor HEENT Reports moist mucous membranes HEENT Narrative: Head is atraumatic no cephalic. Ears normal. Nares patent. Mucosa moist. Uvula midline. No deviation with protrusion. No erythema or exudate the posterior pharynx. Eyes PERRL and EOMs intact bilaterally General Eye ED: Negative for pale conjunctiva or scleral icterus Neck no lymphadenopathy, supple and no JVD Resp normal respiratory effort and clear to auscultation bilaterally Cardio regular rate, regular rhythm, S1 normal heart sound, S2 normal heart sound and no murmurs GI normal to inspection, nondistended, normoactive bowel sounds, non-tender, non- distended and no masses; Negative for hepatosplenomegaly Palpation: soft Back/Spine no CVA tenderness Extremity normal to inspection General Extremety ED: Negative for edema or tenderness General Extremity: Negative for edema Neuro oriented x3, CN's II-XII intact bilaterally and no sensory deficits noted Sensorium / Orientation: alert Motor Exam: strength 5/5 throughout Psych mental status grossly normal Skin no rashes or lesions noted, no wounds and skin turgor normal General Skin Exam: Negative for jaundice or pallor MDM MDM MDM Narrative Medical decision making narrative: Patient presents with nausea vomiting. Will obtain basic metabolic panel to assess renal function electrolytes. CBC to assess white count and H&H. Serum . Lab Data Attestation: I reviewed the patient's lab results. Lab results narrative: Laboratory studies are unremarkable. Labs: Laboratory Results - last 24 hr 09/12/22 09/12/22 09/12/22 19:25 19:25 19:25 WBC 10.2 RBC 4.60 Hgb 13.2 Hct 40.2 MCV 87.4 MCH 28.7 MCHC 32.8 RDW Std Deviation 44.0 H RDW Coeff of Kim 13.9 Plt Count 317 MPV 9.8 Immature Gran % (Auto) 0.300 Neut % (Auto) 75.7 H Lymph % (Auto) 14.4 L Menard % (Auto) 7.2 Eos % (Auto) 2.2 Baso % (Auto) 0.2 Absolute Neuts (auto) 7.8 H Absolute Lymphs (auto) 1.47 Nucleated RBC % 0 Sodium 137 Potassium 3.3 L Chloride 105 Carbon Dioxide 28.0 Anion Gap 4 L BUN 7 Creatinine 0.80 Estim Creat Clear Calc 75.41 Est GFR (MDRD) Af Amer 102 Est GFR (MDRD) Non-Af 85 BUN/Creatinine Ratio 8.7 L Glucose 109 H Calcium 9.2 Total Bilirubin 0.40 AST 15 ALT 37 Alkaline Phosphatase 109 Total Protein 8.5 H Albumin 3.6 Globulin 4.9 H Albumin/Globulin Ratio 0.7 L Serum , Qual NEGATIVE Treatment and Re-Evaluation Narrative: Patient was read status. She is to has no nausea, vomiting or abdominal discomfort. She is discharged with prescription for Zofran. She is to follow- up with her nurse practitioner. She is scheduled for outpatient pulmonary testing. Discharge Plan Triage Chief Complaint: Nausea/Vomiting ED Provider: Rafael Welch Dx/Rx/DC Orders Clinical Impression: Nausea & vomiting, PTSD (post-traumatic stress disorder), Bipolar 1 disorder Instructions: ED Vomiting (Adult) Prescriptions: New ondansetron [ondansetron] 4 mg tablet,disintegrating 4 mg PO Q8H PRN PRN (Reason: Nausea) Qty: 10 0RF No Action bupropion HCl 150 mg tablet extended release 24 hr 150 mg PO DAILY Label Comments: take 1 tablet by mouth once daily benzonatate 100 mg capsule 100 mg PO QHS PRN (Reason: Cough) Label Comments: take 1 capsule by mouth at bedtime if needed for cough ziprasidone HCl 80 mg capsule 80 mg PO QHS Label Comments: take 1 capsule by mouth at bedtime lorazepam 0.5 mg tablet 0.5 mg PO DAILY PRN (Reason: anxiety) Qty: 15 2RF Rx Instructions: 15 tablets for 30 day supply trazodone 50 mg tablet 100 mg PO QHS PRN (Reason: insomnia) albuterol sulfate 90 mcg/actuation HFA aerosol inhaler 2 puff INHALATION Q4H PRN PRN (Reason: sob) ziprasidone HCl [Geodon] 20 mg capsule 20 mg PO QAM Qty: 30 2RF Primary Care Provider: Care Physician,No Primary Referrals: Care Physician,No Primary [Primary Care Provider] - Disposition Disposition: Home, Self Care
[2022-09-12 19:44] LABS: Internal QC Validated? YES +Cl - CLEAR BKGD; Pregnancy, Serum, hCG Quali. NEGATIVE Negative
[2022-09-12 19:51] LABS: ALB/GLOB Ratio 0.7 RATIO (0.9-2.4); AST(SGOT) 15 U/L (15-37); Alanine Aminotransfer ALT/SGPT 37 U/L (13-56); Albumin, Serum 3.6 g/dL (3.2-5.0); Alkaline Phosphatase 109 U/L (45-117); Anion Gap 4 (5-15); BUN 7 mg/dL (7-18); BUN/Creat Ratio 8.7 RATIO (10-20); Calcium,Total 9.2 mg/dL (8.5-10.1); Chloride 105 mmol/L (98-107); EST Glomerular Filtration Rate 85 mL/min (>60); Est Glom Filt Rate - Afr Amer 102 mL/min (>60); Estimated Creatinine Clearance 75.41 ml/min; Globulin 4.9 g/dL (2.2-4.2); Glucose 109 mg/dL (74-106); Potassium 3.3 mmol/L (3.5-5.1); Protein, Total 8.5 g/dL (6.4-8.2); Sodium Level 137 mmol/L (136-145)
[2022-09-12 20:16] VITALS: RESP 18
== END 2022-09-12 20:16 | disposition home or self-care (01) ==
PROVIDERS: Emergency Provider Emergency Medicine; Visit Provider Emergency Medicine
DX: R11.2 Nausea with vomiting, unspecified (principal); F31.9 Bipolar disorder, unspecified; F43.10 Post-traumatic stress disorder, unspecified; Z90.49 Acquired absence of other specified parts of digestive tract; J45.909 Unspecified asthma, uncomplicated
CPT/HCPCS: 80053; 84703; 85025; 99284; A4216

== ENCOUNTER 2022-10-21 16:39 | Emergency (ER) | payer MEDICARE, MEDICAID, SELFPAY ==
[2022-10-21 16:41] VITALS: BP 120/92; PULSE 105; RESP 14; TEMP 36.3; O2SAT 98; BMI 28.5
== END 2022-10-21 17:15 | disposition left against medical advice (07) ==
LOC: ED 17:19
DX: Z53.21 Procedure and treatment not carried out due to patient leaving prior to being seen by health care provider (principal)

== ENCOUNTER 2023-04-02 15:29 | Outpatient (CLI) | payer MEDICARE, MEDICAID, SELFPAY ==
[2023-04-02 17:29] LABS: Hepatitis B Surface Antibody Reactive
[2023-04-04 11:08] LABS: HEPATITIS B SURFACE AG Negative (Negative); Hep C Antibodies Non Reactive (Non Reactive); Hepatitis A AB, Total Negative (Negative); Hepatitis A IgM Antibody Negative (Negative); Hepatitis B Core AB IgM Negative (Negative)
== END 2023-04-02 23:59 | disposition home or self-care (01) ==
LOC: LAB 15:33
PROVIDERS: Referring Provider Nurse Practitioner Family; Visit Provider Nurse Practitioner Family
DX: Z20.5 Contact with and (suspected) exposure to viral hepatitis (principal); Z72.51 High risk heterosexual behavior
CPT/HCPCS: 36415; 80074; 86706; 86708